=== PATIENT | female | born 1985 | race Caucasian/White ===

== ENCOUNTER 2018-07-19 06:43 | Emergency (ER) | payer OTHER ==
[2018-07-19] MEDS ORDERED: SODIUM CHLORIDE 0.9% 1000ML 1,000 ML IV ONE (07:08)
[2018-07-19 07:18] LABS: BASOPHILS % (AUTO) 1 % (0-3); EOSINOPHILS % (AUTO) 1 % (0-9); HEMATOCRIT 43 % (35-47); HEMOGLOBIN 14.3 gm/dl (12.0-15.5); LYMPHOCYTES % (AUTO) 16.7 % (10-50); MEAN CORPUSCULAR HEMOGLOBIN 28.7 pg (27.0-32.0); MEAN CORPUSCULAR HGB CONC 33.2 gm/dl (32.0-36.0); MEAN CORPUSCULAR VOLUME 86 fL (81-99); MONOCYTES % (AUTO) 8.5 % (0-12); NEUTROPHILS % (AUTO) 72.7 % (37-80)
[2018-07-19 07:29] LABS: APPEARANCE,URINE Clear; BILIRUBIN,URINE NEGATIVE (NEGATIVE); COLOR,URINE Yellow; GLUCOSE, URINE (UA) NEGATIVE (NEGATIVE); KETONES,URINE 2+ (NEGATIVE); LEUKOCYTE ESTERASE ,URINE NEGATIVE (NEGATIVE); NITRATE,URINE NEGATIVE (NEGATIVE); OCCULT BLOOD,URINE 1+ (NEG-TRACE); UROBILINOGEN,URINE 0.2 (0.2-1.0 EU)
[2018-07-19 07:30] VITALS: RESP 16
[2018-07-19 07:31] LABS: ALBUMIN 4.2 gm/dl (3.4-5.0); BILIRUBIN,TOTAL 0.4 mg/dl (0.2-1.0); CARBON DIOXIDE 27.4 mEq/L (21-32); CREATININE 0.91 mg/dl (0.60-1.00); MAGNESIUM 1.8 mg/dl (1.8-2.4); POTASSIUM 3.8 mMol/L (3.5-5.1); TOTAL PROTEIN 8.2 gm/dl (6.4-8.2)
[2018-07-19 07:41] LABS: BACTERIA 1+ (< 1+); CRYSTALS NEGATIVE (0-3 AVE/HPF); EPITHELIAL CELLS NEGATIVE (SQUAMOUS); RBC,URINE 0-1 (0-3AV/HPF); WBC,URINE NEGATIVE (0-5AV/HPF)
[2018-07-19 08:26] VITALS: BP 110/83; PULSE 74; TEMP 97.6; O2SAT 98
== END 2018-07-19 09:19 | disposition home or self-care (01) | DRG 101 ==
LOC: ED 06:43
DX: G40.409 Other generalized epilepsy and epileptic syndromes, not intractable, without status epilepticus (principal); R40.2362 Coma scale, best motor response, obeys commands, at arrival to emergency department; R40.2142 Coma scale, eyes open, spontaneous, at arrival to emergency department; R40.2252 Coma scale, best verbal response, oriented, at arrival to emergency department
CPT/HCPCS: 36415; 70450; 80053; 81001; 83735; 84703; 85025; 99284